=== PATIENT | male | born 1950 | race Caucasian/White ===

== ENCOUNTER 2021-12-06 12:31 | Emergency (ER) | payer MEDICARE ==
[~2021-12-06] VITALS: Ht 177.8 cm; Wt 90.0 kg
[2021-12-06] VITALS (12 sets, daily range): BP systolic 139–175; BP diastolic 71–88
[2021-12-06] MEDS ORDERED: CYCLOBENZAPRINE10 MG PO (15:37)
== END 2021-12-06 16:19 | disposition home or self-care (01) ==
LOC: ED 12:31
DX: S39.012A Strain of muscle, fascia and tendon of lower back, initial encounter (principal); S20.419A Abrasion of unspecified back wall of thorax, initial encounter; E11.9 Type 2 diabetes mellitus without complications; I10 Essential (primary) hypertension; W17.89XA Other fall from one level to another, initial encounter; Y93.89 Activity, other specified; Y92.009 Unspecified place in unspecified non-institutional (private) residence as the place of occurrence of the external cause; Z95.1 Presence of aortocoronary bypass graft; Z95.5 Presence of coronary angioplasty implant and graft

== ENCOUNTER 2022-06-26 10:17 | Day surgery (SDC) | payer MEDICARE ==
[~2022-06-26] VITALS: Ht 177.8 cm; Wt 96.6 kg
[~2022-06-26 10:17] MED LIST: AMLODIPINE BESY10 MG PO; AVODART0.5 MG PO; CARVEDILOL12.5 MG PO; CYCLOBENZAPRINE10 MG PO; DIOVAN HCT160 MG/25 PO; LANTUS SOLOSTAR SC; LIPITOR20 M1 PO; PLAVIX75 MG PO; PROTONIX40 M2 PO; SYNJARDY XR 25-1 TAB PO; TAMSULOSIN HCL0.4 MG PO
[2022-06-26 14:04] VITALS: BP 145/76
== END 2022-06-26 13:50 | disposition home or self-care (01) ==
LOC: ENDO 10:17
PROVIDERS: ATTEND Internal Medicine Gastroenterology
PROC: 0DBK8ZX Excision of Ascending Colon, Via Natural or Artificial Opening Endoscopic, Diagnostic (ICD-10-PCS; principal; 2022-06-26)
PROC: 0DBL8ZX Excision of Transverse Colon, Via Natural or Artificial Opening Endoscopic, Diagnostic (ICD-10-PCS; 2022-06-26)
PROC: 0DBN8ZX Excision of Sigmoid Colon, Via Natural or Artificial Opening Endoscopic, Diagnostic (ICD-10-PCS; 2022-06-26)
PROC: 0DBP8ZX Excision of Rectum, Via Natural or Artificial Opening Endoscopic, Diagnostic (ICD-10-PCS; 2022-06-26)
PROC: 0DB48ZX Excision of Esophagogastric Junction, Via Natural or Artificial Opening Endoscopic, Diagnostic (ICD-10-PCS; 2022-06-26)
PROC: 0DB78ZX Excision of Stomach, Pylorus, Via Natural or Artificial Opening Endoscopic, Diagnostic (ICD-10-PCS; 2022-06-26)
PROC: 0DB68ZX Excision of Stomach, Via Natural or Artificial Opening Endoscopic, Diagnostic (ICD-10-PCS; 2022-06-26)
DX: Z12.11 Encounter for screening for malignant neoplasm of colon (principal); D12.5 Benign neoplasm of sigmoid colon; D12.2 Benign neoplasm of ascending colon; D12.3 Benign neoplasm of transverse colon; K62.1 Rectal polyp; K64.8 Other hemorrhoids; K21.00 Gastro-esophageal reflux disease with esophagitis, without bleeding; K44.9 Diaphragmatic hernia without obstruction or gangrene; K31.7 Polyp of stomach and duodenum; K29.50 Unspecified chronic gastritis without bleeding; I10 Essential (primary) hypertension; E11.9 Type 2 diabetes mellitus without complications; E78.5 Hyperlipidemia, unspecified; I25.810 Atherosclerosis of coronary artery bypass graft(s) without angina pectoris; Z79.4 Long term (current) use of insulin; Z80.0 Family history of malignant neoplasm of digestive organs; Z86.010 Personal history of colon polyps; Z79.899 Other long term (current) drug therapy